=== PATIENT | male | born 1980 | race Caucasian/White ===

== ENCOUNTER 2016-12-19 13:40 | Outpatient (RCR) | payer OTHER | END 2017-03-19 | LOC: WSOH | DX: S05.01XA Injury of conjunctiva and corneal abrasion without foreign body, right eye, initial encounter (principal); Y99.0 Civilian activity done for income or pay ==

== ENCOUNTER → 2016-12-19 | Outpatient (REF) ==
[~2016-12-19] MED LIST: ALEVE 220MG220 MG PO; NORCO 325 MG-51 TAB PO; PAIN CREAM; ULTRAM 50MG TAB50 MG PO
== END ==
LOC: WSOH 13:41
DX: Z02.89 Encounter for other administrative examinations (principal)